=== PATIENT | female | born 1945 | race Caucasian/White ===

== ENCOUNTER 2017-03-30 10:27 | Emergency (ER) | payer OTHER ==
[~2017-03-30] VITALS: Ht 154.9 cm; Wt 58.0 kg
[~2017-03-30 10:27] MED LIST: LORA1TAB PO; OMEP20CA16 PO; ONDA4TAB35 PO; SIMV20TA2 PO
[2017-03-30 10:43] VITALS: Ht 154.9 cm; Wt 58.0 kg
[2017-03-30] MEDS ORDERED: SOD CHLORIDE 0.9% 1,000 ML IV STA (14:17)
[2017-03-30] MEDS ORDERED: FAMOTIDINE 20 MG INJ IV STA (14:17)
[2017-03-30] MEDS ORDERED: morphine 4 MG/ML VIAL IV STA (14:17)
[2017-03-30] MEDS ORDERED: ONDANSETRON 4 MG INJ IV STA (14:17)
[2017-03-30] MEDS ORDERED: LORA0.5T PO (14:57)
--- NOTE | 2017-03-30 15:19 | RADRPT ---
PROCEDURE: XR Abdomen. CLINICAL INDICATION: Abdominal pain is 72 year-old female. TECHNIQUE: AP abdomen x-ray. COMPARISON: No. FINDINGS: There is a normal bowel gas pattern. No abnormal intra-abdominal mass or calcifications identified. The bony elements are unremarkable. I cannot see below the pubic symphysis or above the dome of th e diaphragms. This is a limitation of the study. IMPRESSION: 1.Unremarkable abdomen radiograph. RPTAT:AAJJ Physician Ben Date Time Electronically viewed and signed by Clayton Bill Physician on 03/30/2017 15:18 /
[2017-03-30 15:25] LABS: ADD SCAN DIFF NO
[2017-03-30 15:27] LABS: ABNORMAL IP MESSAGE 1; HEMOGLOBIN 13.8 g/dl (12.0-16.0); MEAN CORPUSCULAR HEMOGLOBIN 27.3 pg (29.0-33.0); MEAN CORPUSCULAR HGB CONC 32.1 g/dl (32.0-37.0); MEAN PLATELET VOLUME 9.8 fl (7.4-10.4); PLATELET COUNT 231 10^3/UL (140-415); RED BLOOD COUNT 5.06 10^6/ul (4.20-5.40); RED CELL DISTRIBUTION WIDTH 13.9 % (11.5-14.5); WHITE BLOOD COUNT 13.6 10^3/ul (4.8-10.8)
[2017-03-30 15:36] LABS: INR 0.97; PARTIAL THROMBOPLASTIN TIME 29.1 Sec (25.0-35.0); PROTIME 12.9 Sec (12.2-14.2)
[2017-03-30 15:40] LABS: ADD UMIC YES; URINE BILIRUBIN (Dip) NEGATIVE (NEGATIVE); URINE BLOOD (Dip) 1+ (NEGATIVE); URINE COLOR LT. YELLOW (YELLOW); URINE GLUCOSE (Dip) NEGATIVE (NEGATIVE); URINE KETONES (Dip) NEGATIVE (NEGATIVE); URINE LEUKOCYTE ESTERASE (Dip) NEGATIVE (NEGATIVE); URINE NITRITE (Dip) NEGATIVE (NEGATIVE); URINE TOTAL PROTEIN (Dip) 1+ (NEGATIVE); URINE UROBILINOGEN (Dip) 0.2 E.U./dL (0.1-1.0)
[2017-03-30 15:41] LABS: ALBUMIN 4.4 g/dl (3.3-4.9); CHLORIDE 102 mmol/L (97-110); SODIUM 142 mmol/L (135-144)
[2017-03-30 15:42] LABS: POTASSIUM 4.4 mmol/L (3.5-5.1)
[2017-03-30 15:43] LABS: CREATININE 0.63 mg/dl (0.44-1.00)
[2017-03-30 15:44] LABS: ALANINE AMINOTRANSFERASE 32 IU/L (13-69); ALBUMIN/GLOBULIN RATIO 1.18; ALKALINE PHOSPHATASE 102 IU/L (42-121); ANION GAP 17 (8-16); ASPARTATE AMINO TRANSFERASE 40 IU/L (15-46); BILIRUBIN,INDIRECT 0.6 mg/dl (0-1.1); BILIRUBIN,TOTAL 0.6 mg/dl (0.2-1.3); BLOOD UREA NITROGEN 19 mg/dl (7-20); CALCIUM 9.1 mg/dl (8.4-10.2); CARBON DIOXIDE 27 mmol/L (21-31); GLUCOSE 121 mg/dl (70-220); TOTAL PROTEIN 8.1 g/dl (6.1-8.1)
[2017-03-30 15:51] VITALS: BP 121/72; PULSE 77; RESP 20
[2017-03-30 16:00] LABS: BACTERIA,URINE RARE; SQUAMOUS EPITHELIAL CELL,UR FEW
[2017-03-30 16:01] LABS: TROPONIN-I < 0.012 ng/ml (0.00-0.12)
[2017-03-30] MEDS ORDERED: ONDA4TAB14 PO (16:09)
--- NOTE | 2017-03-30 16:33 | ERD ---
ER Documentation Chief Complaint Date/Time DATE: 03/30/17 TIME: 16:25 Chief Complaint Pt with N/V RLQ AP since 0400. HPI 72-year-old female with no significant past medical history other than gastritis presenting to the ER with complaints of intermittent abdominal pain since 4 AM with associated nausea, vomiting, diarrhea. She is unable to quantify how many times she has vomited or had diarrhea. She denies any blood in either. Vomiting is nonbilious. She has had intermittent right-sided abdominal pain and epigastric pain since the vomiting started. Pain is sharp, nonradiating, intermittent, in the right mid abdomen, with no exacerbating or alleviating factors. She has felt generally weak but denies any associated chest pain, shortness of breath, fevers, chills, dysuria, hematuria. She went to her primary care doctor today who sent her to the ER for further evaluation. ROS All systems reviewed and are negative except as per history of present illness. Medications Home Meds Active Scripts Ondansetron (Ondansetron Odt) 4 Mg Tab.rapdis, 4 MG PO Q6H Y for NAUSEA AND/OR VOMITING, #12 TAB Prov:EDDI HELM MD 03/30/17 Reported Medications Lorazepam* (Lorazepam*) 0.5 Mg Tablet, 0.25 MG PO HS Y for ANXIETY, TAB 03/30/17 Omeprazole* (Omeprazole*) 20 Mg Capsule.dr, 20 MG PO DAILY, CAP 08/09/15 Discontinued Reported Medications Simvastatin (Simvastatin) 20 Mg Tablet, 20 MG PO HS, TAB 08/09/15 Lorazepam* (Lorazepam*) 1 Mg Tablet, 1 MG PO HS Y for SLEEP, TAB 12/28/14 Discontinued Scripts Ondansetron Hcl* (Zofran* ODT) 4 mg -ODT Tab.disper, 4 MG PO Q6H Y for NAUSEA, # 20 TAB Prov:NEEMA COY MD 08/09/15 Allergies Allergies: Coded Allergies: aspirin (Verified Allergy, Mild, 03/30/17) amoxicillin (Verified Allergy, Unknown, vomiting, abd pain, 03/30/17) ciprofloxacin (Verified Allergy, Unknown, vomiting, abd pain, 03/30/17) PMhx/Soc History of Surgery: No Anesthesia Reaction: No Hx Neurological Disorder: No Hx Respiratory Disorders: No Hx Cardiac Disorders: Yes (high cholesterol) Hx Psychiatric Problems: No Hx Miscellaneous Medical Probl: Yes (Gastritis) Hx Alcohol Use: No Hx Substance Use: No Hx Tobacco Use: No Smoking Status: Unknown if ever smoked FmHx Family History: No diabetes Physical Exam Vitals Vital Signs Date Time Temp Pulse Resp B/P Pulse Ox O2 Delivery O2 Flow Rate FiO2 03/30/17 15:51 77 20 121/72 20 Room Air 03/30/17 10:43 98.9 85 18 109/54 95 Physical Exam Const: Well-nourished, nontoxic, mild distress secondary to nausea Head: Atraumatic Eyes: Normal Conjunctiva, PERRLA, EOMI, no scleral icterus ENT: Normal External Ears, Nose and Mouth. Neck: Full range of motion. No lymphadenopathy. No meningismus. Resp: Clear to auscultation bilaterally Cardio: Regular rate and rhythm, no murmurs Abd: Soft, non tender, non distended. No rebound or guarding. No masses. Normal bowel sounds Skin: No petechiae or rashes Back: No midline or flank tenderness Ext: No cyanosis, or edema Neur: Awake and alert Psych: Normal Mood and Affect Result Diagram: 03/30/17 1500 03/30/17 1500 Results 24 hrs Laboratory Tests Test 03/30/17 15:00 White Blood Count 13.610^3/ul Red Blood Count 5.0610^6/ul Hemoglobin 13.8g/dl Hematocrit 43.0% Mean Corpuscular Volume 85.0fl Mean Corpuscular Hemoglobin 27.3pg Mean Corpuscular Hemoglobin Concent 32.1g/dl Red Cell Distribution Width 13.9% Platelet Count 40476^3/UL Mean Platelet Volume 9.8fl Prothrombin Time 12.9Sec Prothrombin Time Ratio 1.0 INR International Normalized Ratio 0.97 Activated Partial Thromboplast Time 29.1Sec Urine Color LT. YELLOW Urine Clarity CLEAR Urine pH 6.0 Urine Specific [place] 1.020 Urine Ketones NEGATIVE Urine Nitrite NEGATIVE Urine Bilirubin NEGATIVE Urine Urobilinogen 0.2 E.U./dL Urine Leukocyte Esterase NEGATIVE Urine Microscopic RBC 5-10/HPF Urine Microscopic WBC 0-2/HPF Urine Squamous Epithelial Cells FEW Urine Bacteria RARE Urine Hemoglobin 1+ Urine Glucose NEGATIVE% Urine Total Protein 1+ Sodium Level 142mmol/L Potassium Level 4.4mmol/L Chloride Level 102mmol/L Carbon Dioxide Level 27mmol/L Anion Gap 17 Blood Urea Nitrogen 19mg/dl Creatinine 0.63mg/dl Glucose Level 121mg/dl Calcium Level 9.1mg/dl Total Bilirubin 0.6mg/dl Direct Bilirubin 0.00mg/dl Indirect Bilirubin 0.6mg/dl Aspartate Amino Transf (AST/SGOT) 40IU/L Alanine Aminotransferase (ALT/SGPT) 32IU/L Alkaline Phosphatase 102IU/L Troponin I < 0.012ng/ml Total Protein 8.1g/dl Albumin 4.4g/dl Globulin 3.70g/dl Albumin/Globulin Ratio 1.18 Lipase 60U/L Current Medications Medications (Trade) Dose Ordered Sig/Vitor Route PRN Reason Start Time Stop Time Status Last Admin Dose Admin Sodium Chloride (NS) 1,000 ml @ 1,000 mls/hr Q1H STAT IV 03/30/17 14:17 03/30/17 15:16 DC 03/30/17 15:00 Morphine Sulfate (morphine) 4 mg ONCE STAT IV 03/30/17 14:17 03/30/17 14:25 DC Ondansetron HCl (Zofran Inj) 4 mg ONCE STAT IV 03/30/17 14:17 03/30/17 14:25 DC 03/30/17 15:00 Famotidine (Pepcid Iv) 20 mg ONCE STAT IV 03/30/17 14:17 03/30/17 14:25 DC 03/30/17 15:00 Procedures/MDM EKG: Rate/Rhythm: Normal Sinus Rhythm QRS, ST, T-waves: No changes consistent w/ acute ischemia Impression: No evidence of ischemia or arrhythmia Abdominal x-ray: No significant abnormalities Labs: CBC: Mild leukocytosis CMP: No significant abnormalities Urinalysis: No evidence of infection Differential includes but is not limited to appendicitis, colitis, cystitis, ureterolithiasis, diverticulitis, abdominal aortic dissection, bowel obstruction , perforated bowel, fecal impaction, gastroenteritis. I have a low suspicion for ovarian torsion. Bloodwork and UA ordered to evaluate for above. Labs showed only mild leukocytosis without any other significant abnormalities. Patient was given IV fluids and medications for her symptoms with significant improvement. Upon repeat abdominal exam, she again had no tenderness, distention, or peritoneal signs. I do not think imaging is warranted at this time as I have a very low suspicion for acute surgical abdomen. Patient will be discharged with Zofran for her nausea and vomiting. She was advised to return in 8 hours for repeat exam if her abdominal pain worsens or continues or if she has any other worsening symptoms. Patient and her daughter are agreeable to the plan. She will follow-up with her primary care doctor in the next 2 days as well. Departure Diagnosis: Primary Impression: Abdominal pain Abdominal location: right lower quadrant Qualified Code: R10.31 - Right lower quadrant abdominal pain Additional Impression: Nausea vomiting and diarrhea Condition: Stable Patient Instructions: Abdominal Pain, Vomiting And Diarrhea, Nonspecific (Adult ) Referrals: PETRA GALINDO MD (PCP) Additional Instructions: Sospecho que raz sntomas son causados por laci gastroenteritis viral. Ahora mismo no necesitas antibiticos para esto. Sin embargo, si raz sntomas empeoran en las siguientes 8 horas, me gustara que regresara a la osvaldo de emergencias para otro examen y posibles radiografas de duval abdomen. EDDI HELM MD March 30, 2017 16:33
[2017-03-30 16:44] LABS: BASOPHIL # 0.1 10^3/ul (0.0-0.1); LYMPHOCYTES # 0.3 10^3/ul (0.8-2.9); MONOCYTE # 0.3 10^3/ul (0.3-0.9); NEUTROPHIL # 12.9 10^3/ul (1.6-7.5)
== END 2017-03-30 16:26 | disposition home or self-care (01) ==
LOC: E/R 10:27
DX: R10.31 Right lower quadrant pain (principal); R11.2 Nausea with vomiting, unspecified; R19.7 Diarrhea, unspecified; R40.2142 Coma scale, eyes open, spontaneous, at arrival to emergency department; R40.2252 Coma scale, best verbal response, oriented, at arrival to emergency department; R40.2362 Coma scale, best motor response, obeys commands, at arrival to emergency department
CPT/HCPCS: 36415; 74000; 80053; 81001; 83690; 84484; 85025; 85610; 85730; 93005; 96374; 96375; 99285; J2270; J2405; J7030; 81003